=== PATIENT | female | born 1945 | race Caucasian/White ===

== ENCOUNTER 2020-09-18 08:44 | Inpatient (IN) ==
[~2020-09-18 08:44] MED LIST: Buffered Lidocaine 1% SYRIN 1 ml INTRADERM ONE; Lactated Ringers 1000 ml BAG 1,000 ML IV SCH
[2020-09-18] MEDS ORDERED: ceFAZolin 2 GM PREMIX 2 GM/50 ML BAG ONE (09:09)
[2020-09-18] MEDS ORDERED: Buffered Lidocaine 1% SYRIN 1 ml INTRADERM ONE (09:10)
[2020-09-18] MEDS ORDERED: fentaNYL 250 mcg/5 ml 50 MCG/ML 5 ml VIAL (250 MCG) ONE (11:22)
[2020-09-18] MEDS ORDERED: Midazolam 2 mg/2 ml VIAL 1 mg/ml 2 ml VIAL (2 mg) ONE ×2 (11:22→12:33)
[2020-09-18] MEDS ORDERED: ROPIVACAINE 5 MG/ML 30 ML BTL (0.5%) ONE ×2 (11:48→11:54)
[2020-09-18] MEDS ORDERED: fentaNYL 100 mcg/2 ml 50 MCG/ML VIAL ONE (11:57)
[2020-09-18] MEDS ORDERED: diPHENhydraMINE 25 mg TAB PO PRN (13:18)
[2020-09-18] MEDS ORDERED: diPHENhydraMINE IV 50 MG/ML 1 ml VIAL (BENADRYL) IV PRN (13:18)
[2020-09-18] MEDS ORDERED: Ondansetron ODT 4 mg TAB 4 MG TAB PO PRN (13:18)
[2020-09-18] MEDS ORDERED: Magnesium Hydroxide LIQ 30 ML UDC PO PRN (13:18)
[2020-09-18] MEDS ORDERED: Lactulose 30 ml UDC PO PRN (13:18)
[2020-09-18] MEDS ORDERED: Ondansetron 4 mg VIAL 2 MG/ML 2 ml VIAL IV PRN (13:18)
[2020-09-18] MEDS ORDERED: Morphine 2 MG/ML SYRINGE IV PRN (13:18)
[2020-09-18] MEDS: Lactated Ringers 1000 ml BAG 1,000 ML IV SCH (15:53)
[2020-09-18] MEDS ORDERED: oxyCODONE/Acetamin 5/325 mg TAB ONE ×2 (17:13→22:57)
[2020-09-18] MEDS: oxyCODONE/Acetamin 5/325 mg TAB PO PRN ×2 (17:16→22:59)
[2020-09-18] MEDS ORDERED: Magnesium Hydroxide LIQ 30 ML UDC ONE (20:47)
[2020-09-18] MEDS: ceFAZolin 1 GM ADVAN 1 GM in NS 0.9% 50 ML 50 ML IVPB SCH (20:49)
[2020-09-18] MEDS ORDERED: Magnesium Hydroxide LIQ 30 ML UDC PO SCH (21:00)
[2020-09-19] MEDS: Lactated Ringers 1000 ml BAG 1,000 ML IV SCH (03:05)
[2020-09-19] MEDS: ceFAZolin 1 GM ADVAN 1 GM in NS 0.9% 50 ML 50 ML IVPB SCH ×2 (04:50→12:37)
[2020-09-19] MEDS ORDERED: oxyCODONE/Acetamin 5/325 mg TAB ONE ×2 (06:21→13:15)
[2020-09-19] MEDS: oxyCODONE/Acetamin 5/325 mg TAB PO PRN ×2 (06:22→13:21)
[2020-09-19 07:16] LABS: Hematocrit 32 % (35-47); Hemoglobin 10.9 g/dL (12.0-16.0); Platelet Count 150 10^3/uL (150-450)
[2020-09-19 07:33] LABS: Calcium 8.3 mg/dL (8.6-10.3); EGFR African American 111.8 (>60); EGFR Non-African American 92.4 (>60); Potassium 3.8 mmol/L (3.5-5.0)
[2020-09-19] MEDS ORDERED: Vitamin THERAPEUTIC TAB PO SCH (09:00)
[2020-09-19] MEDS ORDERED: Vitamin THERAPEUTIC TAB ONE (09:05)
[2020-09-19 11:52] VITALS: BP 150/50
== END 2020-09-19 14:02 | disposition home or self-care (01) | DRG 470 ==
LOC: AA 08:44 → SSU 16:24
PROVIDERS: ADMIT Orthopaedic Surgery Adult Reconstructive Orthopaedic Surgery; ATTEND Orthopaedic Surgery Adult Reconstructive Orthopaedic Surgery